=== PATIENT | female | born 1955 | race Caucasian/White ===

== ENCOUNTER 2021-03-17 11:26 | Outpatient (CLI) | payer BC, MEDICAID, SELFPAY ==
--- NOTE | 2021-03-17 11:33 | XR_ITS ---
WS: [id number] DEXA (DUAL ENERGY X-RAY ABSORPTIOMETRY) Bone mineral density was performed using a [employer] machine. HISTORY: POST MENOPAUSAL COMPARISON: None available. Lumbar spine BMD (L1-L4): 0.953 g/cm2 T score: -1.9 Z score: -0.9 Total hip BMD: Left: 0.892 g/cm2. T score: -0.9 Z score: -0.1 Right: 0.903 g/cm2. T score: -0.8 Z score: 0.0 10 year probability of a major osteoporotic fracture is 9%. XR/XR DEXA axial skeleton* 12051 IMPRESSION: OSTEOPENIA based upon the WHO classification for females.
== END 2021-03-17 11:27 | disposition home or self-care (01) ==
PROVIDERS: Visit Provider Nurse Practitioner Family
DX: Z78.0 Asymptomatic menopausal state (principal); M85.80 Other specified disorders of bone density and structure, unspecified site
CPT/HCPCS: 77080

== ENCOUNTER 2022-01-02 18:18 | Emergency (ER) | payer MEDICARE, MEDICAID, SELFPAY ==
[2022-01-02 18:24] VITALS: BP 171/85; PULSE 79; RESP 16; TEMP 36.8; O2SAT 97
--- NOTE | 2022-01-02 18:38 | ECG_ITS ---
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 Measurements Intervals [employer] Rate: 73 P: -4 AK: 146 QRS: 20 QRSD: 96 T: 40 QT: 391 QTc: 433 Interpretive Statements SINUS RHYTHM No previous ECG available for comparison Electronically Signed On 01-02-2022 23:25:48 CDT by Jerardo Alcazar M.D. [id number]
--- NOTE | 2022-01-02 18:38 | USR_ITS ---
PROCEDURE INFORMATION: Exam: US Abdomen, Limited; Right Upper Quadrant Exam date and time: 01/02/2022 7:01 PM Age: 66 years old Clinical indication: Abdominal pain; Patient HX: Ruq pain x 4 days; Additional info: Abd pain TECHNIQUE: Imaging protocol: Real time ultrasound of the abdomen with image documentation. Limited exam focused on the right upper quadrant. COMPARISON: US [facility] [place] Abdomen Limited 07/13/2017 8:36 AM FINDINGS: Liver: There is diffuse increased echogenicity of the liver parenchyma and attenuation of sound in the deep portions of the liver obscuring fine hepatic detail, consistent with fatty infiltration. No focal liver abnormality. Gallbladder: The gallbladder is normal. There are no stones. There is no wall thickening or pericholecystic fluid. Sonographic Rebollar sign is negative. Biliary ducts: The common bile duct is nondilated measuring 6 mm. Pancreas: The pancreas is unremarkable. Right kidney: The right kidney is unremarkable. Aorta: The upper abdominal aorta is unremarkable. Portal venous: The main portal vein is patent. US/US gall bladder [id number] IMPRESSION: 1. No acute findings. No sign of cholecystitis. 2. Hepatic steatosis.
--- NOTE | 2022-01-02 18:41 | W.ED.GENADLT ---
HPI - General Adult General: Chief complaint: Abdominal Pain Stated complaint: right side pain Time Seen by Provider: 01/02/22 18:28 History of Present Illness: Patient is 66-year-old female w/ hx of DM, HTN presents the emergency room for evaluation of 3 days of RUQ and R flank abdominal pain. Patient says that she has intermittent right upper quadrant dull pain throughout the day that is worse at night when she lies back. Patient denies the pain is worse with p.o. intake. Patient denies any chest pain, shortness breath, exertional chest pain shortness breath or palpitation. Patient denies any nausea or vomiting fever or chills. Patient denies any diarrhea melena/medic easier. Patient no prior history renal colic or prior abdominal surgery. Patient denies any urinary complaints at this time Onset:3-4 days go Duration:3-4 days Location:home Severity:moderate Associated symptoms: Deny chest pain, dyspnea, nausea, rash, palpitations or vomiting Review of Systems Const: Denies: fever(s) or chills Eyes: Denies: change in vision ENMT: Denies: mouth pain Card: Denies: chest pain or palpitations Resp: Denies: dyspnea or non-productive cough GI: Reports: abdominal pain (+RUQ abd pain/R flank pain); Denies: nausea, vomiting or diarrhea : Denies: dysuria Musc: Denies: extremity pain Skin/Breast: Denies: rash or new lesions Neuro: Denies: weakness in extremities Psych: Reports: other (Normal mood) Shreyas/Lymph: Denies: easy bruising [facility] ED PFSH: Medical History (Updated 01/10/22 @ 00:00 by ) Diabetes Hypertension Social History Smoking and tobacco status: never smoked Alcohol intake: never Physical Exam Const: COMMON NORMALS: alert HENMT: COMMON NORMALS: atraumatic HEAD & SCALP: atraumatic MOUTH: moist mucous membranes not abnormal Eye: COMMON NORMALS: EOMs intact bilaterally and conjunctivae normal CONJUNCTIVA: Yes conjunctivae normal Neck/C-Spine: COMMON NORMALS: full ROM and supple Resp: COMMON NORMALS: normal respiratory effort and clear to auscultation bilaterally AUSCULTATION: clear to auscultation bilaterally Cardio: COMMON NORMALS: regular rate RATE: regular rate GI: COMMON NORMALS: Soft to palpation PALPATION: Yes Soft to palpation OTHER: + Right flank/right CVA tenderness to palpation NO guarding rebound, guarding, rigidity. Neg Rebollar/Neg McBurney's point tenderness, no suprabupic tenderness to palpation. Extremity: COMMON NORMALS: full ROM Neuro: SENSORIUM/ORIENTATION: Yes alert MOTOR EXAM: No Abnormal motor strength present and Other motor observations present (no focal motor deficits) Psych: COMMON NORMALS: speech normal SPEECH: Yes normal speech MOOD & AFFECT: Yes euthymic mood Course Vital Signs: Vital signs: Vital Signs Temperature 98.0 F 01/02/22 21:46 Pulse Rate 43 L 01/02/22 21:46 Respiratory Rate 16 01/02/22 21:46 Blood Pressure 169/80 01/02/22 21:46 Pulse Oximetry 98 01/02/22 21:46 MDM - General Adult Medical Decision Making Please 58-year-old female history of hypertension, diabetes presenting to the emergency room for evaluation of right upper quadrant abdominal pain. On exam, patient has right flank and right CVA tenderness to palpation. Negative Rebollar sign. No guarding or rebound tenderness. White count 5.3 today. Ultrasound showed no focal biliary pathologies. Troponin x2 with delta less than 5. EKG is nonischemic. Patient's not actively complaining of chest pain. Doubt this is ACS related since patient has no chest pain, exertional dyspnea/chest pain, troponi nx 2 wnl, EKG is nonischemic. No suspicion for other acute intra-abdominal pathology including SBO, biliary pathology, appendicitis, diverticulitis, or other emergent condition requiring surgery. Rx tylenol PRN abd pain, maalox/pepcid PRN dyspepsia, and zofran PRN nausea/vomiting Disposition: Discharge. Patient counseled regarding diagnostic impression, treatment plan. Patient given ED strict return precautions to return for continuation, worsening, or development of new symptoms. Instructed to f/u w/ PCP regarding symptoms today. Patient verbalized understanding. Lab Data : 01/02/22 18:40 01/02/22 18:40 Radiology Impressions Gallbladder Ultrasound 01/02/22 18:38 IMPRESSION: 1. No acute findings. No sign of cholecystitis. 2. Hepatic steatosis. Chest X-Ray 01/02/22 20:56 IMPRESSION: No acute findings. Laboratory Results WBC 5.3 10^3/uL (4.0-10.0) 01/02/22 18:40 RBC 4.75 10^6/uL (4.1-5.3) 01/02/22 18:40 Hgb 13.5 g/dL (11.5-15.3) 01/02/22 18:40 Hct 41.0 % (37.0-47.0) 01/02/22 18:40 MCV 86.3 fl (81-99) 01/02/22 18:40 MCH 28.4 pg (28.0-34.0) 01/02/22 18:40 MCHC 32.9 g/dL (30.0-36.0) 01/02/22 18:40 RDW 12.3 % (12.1-15.1) 01/02/22 18:40 Plt Count 233 10^3/cmm (130-400) 01/02/22 18:40 MPV 10.5 fL (7.4-10.4) H 01/02/22 18:40 Neut % (Auto) 41.9 % 01/02/22 18:40 Lymph % (Auto) 50.6 % 01/02/22 18:40 [place] % (Auto) 5.1 % 01/02/22 18:40 Eos % (Auto) 1.3 % 01/02/22 18:40 Baso % (Auto) 0.9 % 01/02/22 18:40 Neut # (Auto) 2.23 10^3/uL (1.8-7.7) 01/02/22 18:40 Lymph # (Auto) 2.7 10^3/uL (0.8-4.8) 01/02/22 18:40 [place] # (Auto) 0.3 10^3/uL (0.2-0.9) 01/02/22 18:40 Eos # (Auto) 0.1 10^3/uL (0.0-0.8) 01/02/22 18:40 Baso # (Auto) 0.1 10^3/uL (0.0-0.1) 01/02/22 18:40 Nucleated RBC % (auto) 0 % 01/02/22 18:40 Nucleated RBCs # 0.0 /100WBC 01/02/22 18:40 Sodium 138 mmol/L (136-145) 01/02/22 18:40 Potassium 4.6 mmol/L (3.5-5.1) 01/02/22 18:40 Chloride 102 mmol/L (98-107) 01/02/22 18:40 Carbon Dioxide 25 mmol/L (22-29) 01/02/22 18:40 Anion Gap 15.6 (5-19) 01/02/22 18:40 BUN 16 mg/dL (8-23) 01/02/22 18:40 Creatinine 0.7 mg/dL (0.5-0.9) 01/02/22 18:40 GFR Calculation 83.2 mL/min (90-130) L 01/02/22 18:40 Glucose 255 mg/dL (65-115) H 01/02/22 18:40 Calculated Osmolality 296 mOsm/kg (285-295) H 01/02/22 18:40 Calcium 9.3 mg/dL (8.5-10.5) 01/02/22 18:40 Total Bilirubin 0.3 mg/dL (0.15-1.2) 01/02/22 18:40 AST 21 U/L (0-32) 01/02/22 18:40 ALT 24 U/L (0-33) 01/02/22 18:40 Alkaline Phosphatase 64 IU/L (35-105) 01/02/22 18:40 Troponin T Baseline 11 ng/L (0-10) H 01/02/22 18:40 Troponin T 120 Minute 10.38 ng/L (0-10) H 01/02/22 20:33 Delta Troponin T -0.62 ABS# (0-10) L 01/02/22 20:33 Total Protein 7.0 g/dL (6.6-8.7) 01/02/22 18:40 Albumin 4.1 g/dL (3.5-5.2) 01/02/22 18:40 Globulin 2.9 g/dL (1.3-4.6) 01/02/22 18:40 Lipase 33 U/L (13-60) 01/02/22 18:40 Urine Color Yellow (Yellow) 01/02/22 19:46 Urine Appearance Clear (CLEAR) 01/02/22 19:46 Urine pH 5 (5-7) 01/02/22 19:46 Ur Specific [place] 1.030 (1.005-1.030) 01/02/22 19:46 Urine Protein Neg (Negative) 01/02/22 19:46 Urine Glucose (UA) 4+ (Normal) H 01/02/22 19:46 Urine Ketones Negative (Negative) 01/02/22 19:46 Urine Blood Neg (Negative) 01/02/22 19:46 Urine Nitrate Negative (Negative) 01/02/22 19:46 Urine Bilirubin Neg (Negative) 01/02/22 19:46 Urine Urobilinogen Norm mg/dL (Negative) 01/02/22 19:46 Ur Leukocyte Esterase Negative (Negative) 01/02/22 19:46 Imaging Data Other Imaging: Radiologist's impression: [id number] [address] Ultrasound Report Signed Patient: Zbigniew Rowell Unit #: [id number] : 1955 Age/Sex: 66 / F ADM Date: 01/02/22 Loc: ER Room/Bed: Attending Dr: Ordering Provider/Ordering MD: Tk Carlson MD Date of Service: 01/02/22 Procedure(s): US gall bladder [id number] Accession Number(s): [id number] Report Number: [id number] PROCEDURE INFORMATION: Exam: US Abdomen, Limited; Right Upper Quadrant Exam date and time: 01/02/2022 7:01 PM Age: 66 years old Clinical indication: Abdominal pain; Patient HX: Ruq pain x 4 days; Additional info: Abd pain TECHNIQUE: Imaging protocol: Real time ultrasound of the abdomen with image documentation. Limited exam focused on the right upper quadrant. COMPARISON: US [facility] [place] Abdomen Limited 07/13/2017 8:36 AM FINDINGS: Liver: There is diffuse increased echogenicity of the liver parenchyma and attenuation of sound in the deep portions of the liver obscuring fine hepatic detail, consistent with fatty infiltration. No focal liver abnormality. Gallbladder: The gallbladder is normal. There are no stones. There is no wall thickening or pericholecystic fluid. Sonographic Rebollar sign is negative. Biliary ducts: The common bile duct is nondilated measuring 6 mm. Pancreas: The pancreas is unremarkable. Right kidney: The right kidney is unremarkable. Aorta: The upper abdominal aorta is unremarkable. Portal venous: The main portal vein is patent. US/US gall bladder [id number] IMPRESSION: 1. No acute findings. No sign of cholecystitis. 2. Hepatic steatosis. ? Dictated By: Jose Zamora MD Signed By: Jose Zamora MD Signed Date/Time: 01/02/222020 DD/ [address] [address] XRay Report Signed Patient: Zbigniew Rowell Unit #: [id number] : 1955 Age/Sex: 66 / F ADM Date: 01/02/22 Loc: ER Room/Bed: Attending Dr: Ordering Provider/Ordering MD: Tk Carlson MD Date of Service: 01/02/22 Procedure(s): XR chest 1V portable [id number] Accession Number(s): [id number] Report Number: [id number] PROCEDURE INFORMATION: Exam: XR Chest Exam date and time: 01/02/2022 9:00 PM Age: 66 years old Clinical indication: Other: Ruq abd pain TECHNIQUE: Imaging protocol: Radiologic exam of the chest. Views: 1 view. COMPARISON: CR Chest 2 views* [id number] 03/23/2015 9:18 AM FINDINGS: Lungs: Lungs are clear. Pleural spaces: There is no pleural effusion or pneumothorax. Heart/Mediastinum: Cardiomediastinal contours are unremarkable. Bones/joints: Bones are unremarkable. XR/XR chest 1V portable [id number] IMPRESSION: No acute findings. ? Dictated By: Jose Zamora MD Signed By: Jose Zamora MD Signed Date/Time: 01/02/222114 DD/ 2100 Discharge Plan Discharge Patient Disposition: Home Clinical Impression: Abdominal pain Discharge Orders: Discharge ED (Routine); Ordered 01/02/22 Ordered By: Tk Carlson Discharge Diet: Advance as tolerated Discharge Activity: Increase activity as tolerated Patient Instructions: Abdominal Pain (ED) Activity Restrictions/Additional Instructions: Please come back if you have any worsening abdominal pain, fever or chills, nausea or vomiting, diarrhea, blood in the stool, inability hold down liquid or solids, or any new concerning complaints. Coding Level of Care Code ED Amortization Schedule Clerk for Chg Fwd Exam Comprehensive
[2022-01-02] MEDS: famotidine 20 mg Tablet PO (18:55)
[2022-01-02] MEDS: acetaminophen 500 mg Tablet PO (18:55)
[2022-01-02 19:00] LABS: Basophils # 0.1 10^3/uL (0.0-0.1); Basophils % 0.9 %; Eosinophils # 0.1 10^3/uL (0.0-0.8); Eosinophils % 1.3 %; Hemoglobin 13.5 g/dL (11.5-15.3); Lymphocytes # 2.7 10^3/uL (0.8-4.8); Lymphocytes % 50.6 %; Mean Corpuscular HGB Conc 32.9 g/dL (30.0-36.0); Mean Corpuscular Hemoglobin 28.4 pg (28.0-34.0); Mean Corpuscular Volume 86.3 fl (81-99); Mean Platelet Volume 10.5 fL (7.4-10.4); Monocytes # 0.3 10^3/uL (0.2-0.9); Monocytes % 5.1 %; Neutrophils # 2.23 10^3/uL (1.8-7.7); Neutrophils % 41.9 %; Nucleated Red Blood Cells % 0 %; Platelet Count 233 10^3/cmm (130-400); Red Blood Count 4.75 10^6/uL (4.1-5.3); Red Cell Distribution Width 12.3 % (12.1-15.1); White Blood Count 5.3 10^3/uL (4.0-10.0)
[2022-01-02 19:14] LABS: Alanine Aminotransferase 24 U/L (0-33); Albumin Level 4.1 g/dL (3.5-5.2); Alkaline Phosphatase 64 IU/L (35-105); Anion Gap 15.6 (5-19); Aspartate Amino Transferase 21 U/L (0-32); Blood Urea Nitrogen 16 mg/dL (8-23); Calcium 9.3 mg/dL (8.5-10.5); Carbon Dioxide 25 mmol/L (22-29); Chloride 102 mmol/L (98-107); Globulin 2.9 g/dL (1.3-4.6); Glomerular Filtration Rate 83.2 mL/min (90-130); Glucose 255 mg/dL (65-115); Lipase 33 U/L (13-60); Osmolality Calculated 296 mOsm/kg (285-295); Potassium 4.6 mmol/L (3.5-5.1); Sodium 138 mmol/L (136-145); Total Bilirubin 0.3 mg/dL (0.15-1.2)
[2022-01-02 19:56] LABS: Add Urine Microscopic? NO; Charge for UA Resulting for Rev
[2022-01-02 20:03] LABS: Troponin(5th) Baseline 11 ng/L (0-10)
--- NOTE | 2022-01-02 20:38 | ECG_ITS ---
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 Measurements Intervals [place] Rate: 72 P: 7 MA: 150 QRS: 9 QRSD: 89 T: 32 QT: 398 QTc: 438 Interpretive Statements SINUS RHYTHM Compared to ECG 01/02/2022 18:44:36 No significant changes Electronically Signed On 01-02-2022 23:26:15 CDT by Jerardo Alcazar M.D. [id number]
[2022-01-02 20:41] LABS: Bilirubin Urine Neg (Negative); Blood Urine Neg (Negative); Glucose Urine UA 4+ (Normal); Ketones Urine Negative (Negative); Leukocyte Esterase Urine Negative (Negative); Nitrate Urine Negative (Negative); Protein Urine Neg (Negative); Urine Appearance Clear (CLEAR); Urine Color Yellow (Yellow); Urobilinogen Urine Norm (Negative); pH Urine 5 (5-7)
--- NOTE | 2022-01-02 20:56 | XRR_ITS ---
PROCEDURE INFORMATION: Exam: XR Chest Exam date and time: 01/02/2022 9:00 PM Age: 66 years old Clinical indication: Other: Ruq abd pain TECHNIQUE: Imaging protocol: Radiologic exam of the chest. Views: 1 view. COMPARISON: CR Chest 2 views* [id number] 03/23/2015 9:18 AM FINDINGS: Lungs: Lungs are clear. Pleural spaces: There is no pleural effusion or pneumothorax. Heart/Mediastinum: Cardiomediastinal contours are unremarkable. Bones/joints: Bones are unremarkable. XR/XR chest 1V portable [id number] IMPRESSION: No acute findings.
[2022-01-02 21:04] LABS: Troponin 5 2HR 10.38 ng/L (0-10)
[2022-01-02 21:14] LABS: Troponin 5 2HR Delta -0.62 ABS# (0-10)
[2022-01-02 21:46] VITALS: BP 169/80; PULSE 43; RESP 16; TEMP 36.7; O2SAT 98
== END 2022-01-02 21:46 | disposition home or self-care (01) ==
PROVIDERS: Emergency Provider Emergency Medicine
DX: R10.11 Right upper quadrant pain (principal); I10 Essential (primary) hypertension; E11.9 Type 2 diabetes mellitus without complications
CPT/HCPCS: 71045; 76705; 80053; 81003; 83690; 84484; 85025; 93005; 99285

== ENCOUNTER → 2022-01-27 09:55 | Outpatient (BNVA) | payer MEDICARE, MEDICAID, SELFPAY | PROVIDERS: PCP Family Medicine; Visit Provider Surgery | DX: B02.9 Zoster without complications (principal) | CPT/HCPCS: 99203 ==

== ENCOUNTER → 2024-10-08 09:04 | Outpatient (BNVA) | payer MEDICARE, MEDICAID, SELFPAY | PROVIDERS: PCP Family Medicine; Visit Provider Podiatrist Foot & Ankle Surgery | DX: E11.42 Type 2 diabetes mellitus with diabetic polyneuropathy (principal); L60.3 Nail dystrophy; L84 Corns and callosities; G62.9 Polyneuropathy, unspecified; Z79.84 Long term (current) use of oral hypoglycemic drugs | CPT/HCPCS: 11056; 11720; 99203 ==